=== PATIENT | female | born 1995 | race Caucasian/White ===

== ENCOUNTER 2016-08-08 11:15 | Day surgery (SDC) | payer BC ==
[2016-08-01 13:05] LABS: HEMATOCRIT 43.2 % (36.0-48.0); HEMOGLOBIN 14.1 g/dL (12.0-16.0)
--- NOTE | ~2016-08-08 | OP ---
Record Of Operation [facility] [address] [place]. [address] NAME: BABITA MANCIA : [birth year] STATUS : [facility]#: [id number] AGE: 20 ADM/REG DATE : 08/08/16 MR#: [id number] REPORT SERV DATE: 08/09/16 DICTATED BY: DAVE CASTAÑEDA DATE: 08/08/16 REPORT STATUS : Draft TRANSCRIBED BY: MODRonnell DATE: 08/08/16 DATE OF PROCEDURE: 08/08/2016 PREOPERATIVE DIAGNOSES: Deviated nasal septum and nasal obstruction. POSTOPERATIVE DIAGNOSES: Deviated nasal septum and nasal obstruction. PROCEDURE: Septoplasty. SURGEON: Dave Castañeda M.D. GENERAL: Endotracheal anesthesia was utilized. No complications. ESTIMATED BLOOD LOSS: 15 mL. Gayle splints placed. INDICATION FOR PROCEDURE: A 20-year-old female seen with a severe deviated nasal septum with left 3+, seen on exam and on CT scan of her sinuses. She has difficulty with air. She never breathes through her left side of her nose, and she wishes septoplasty. Indication for procedure was described. The risks and benefits of the procedure including blood loss, infection, bleeding, pain and infection postoperatively, and continued obstruction. She voiced understanding and signed the consent. The consent was placed on the chart at the time of operation. PROCEDURE IN DETAIL: The patient was wheeled to the OR suite and placed on the table in supine position. She was intubated and placed under general endotracheal anesthesia using NRI right tube. After intubation, her nose was then sprayed with Afrin nasal spray, and 4% cocaine-soaked cottonoids were placed for approximately three minutes to five minutes. She was turned 90 degrees and prepped and draped in standard fashion for endoscopic septoplasty. Portion of procedure was also diagnostic nasal endoscopy for the endoscopic support of the septoplasty. I did inject 1 mL of 2% lidocaine with 1:100,000 epinephrine to each side of the nasal cavity. I made a [place]-type incision in the left-hand side of the caudal septum and elevated ipsilateral flaps of the curved portion of septum and bone. I then made a vertical incision through the cartilage and just distal to the mucosal incision and elevated contralateral flaps of the curved portions as well. Then using a combination of Sydni and Herman, I removed the curved portion of septum and perpendicular plate of the ethmoid and also the maxillary crest anteriorly as well. I suctioned all blood and put the flaps back in place. I had a nice straight septum and we rinsed. I closed the septum using four simple mattress 4-0 chromic gut sutures at the incision. I suctioned the nasal cavity. I outfractured both inferior turbinates and placed Gayle splints. This was affixed to the caudal septum using a 3-0 nylon suture. I suctioned all blood and dried the nose and the procedure was complete, so nasal endoscopy was performed with septoplasty. COMPLICATIONS: None. Record Of Operation [facility] [address] [place]. [address] NAME: BABITA MANCIA : [birth year] STATUS : [facility]#: [id number] AGE: 20 ADM/REG DATE : 08/08/16 MR#: [id number] REPORT SERV DATE: 08/09/16 DICTATED BY: DAVE CASTAÑEDA DATE: 08/08/16 REPORT STATUS : Draft TRANSCRIBED BY: KIMBERLYN DATE: 08/08/16 IOANA/KIMBERLYN Dave Castañeda M.D. / [id number] CC: Dave Castañeda M.D. NO PCP
[~2016-08-08 11:15] MED LIST: ADVIL PO; ALLEGRA180 PO
== END 2016-08-08 16:10 | disposition home or self-care (01) ==
LOC: SDC 11:15
PROVIDERS: Otolaryngology
PROC: 09SM0ZZ Reposition Nasal Septum, Open Approach (ICD-10-PCS; principal; 2016-08-08 12:45)
DX: J34.2 Deviated nasal septum (principal); J34.89 Other specified disorders of nose and nasal sinuses; K21.9 Gastro-esophageal reflux disease without esophagitis; Z88.1 Allergy status to other antibiotic agents; Z88.5 Allergy status to narcotic agent; Z79.899 Other long term (current) drug therapy; Z90.89 Acquired absence of other organs
CPT/HCPCS: 36415; 84703; 85014; 85018; 85730; 88300; A9270-GY; J0690; J2250; J2270; J2405; J2710; J3010